=== PATIENT | male | born 1930 | race Caucasian/White ===

== ENCOUNTER 2016-10-08 10:33 | Emergency (ER) | payer MEDICARE ==
[~2016-10-08 10:33] MED LIST: ACETAMINOPHEN325 MG PO; ARICEPT10 MG PO; CLARITIN10 MG PO; COREG6.25 MG PO; DRISDOL50000 UNIT PO; LANOXIN125 MCG PO; LASIX20 MG PO; PRINIVIL5 MG PO; SEROQUEL25 MG PO; SILDENAFIL20 MG PO; SYNTHROID50 MCG PO; ZOLOFT100 MG PO
== END 2016-10-08 13:40 | disposition home or self-care (01) ==
LOC: ER 10:33
DX: S70.02XA Contusion of left hip, initial encounter (principal); Z88.5 Allergy status to narcotic agent; Z88.2 Allergy status to sulfonamides; Z87.891 Personal history of nicotine dependence; Z88.8 Allergy status to other drugs, medicaments and biological substances; Z79.899 Other long term (current) drug therapy; W01.0XXA Fall on same level from slipping, tripping and stumbling without subsequent striking against object, initial encounter; Y92.092 Bedroom in other non-institutional residence as the place of occurrence of the external cause
CPT/HCPCS: 73502-LT; 96374